=== PATIENT | male | born 1990 | race Caucasian/White ===

== ENCOUNTER 2024-09-17 16:08 | Emergency (ER) | payer MEDICARE, MEDICAID, SELFPAY ==
[2024-09-17 16:09] VITALS: BP 130/91; PULSE 72; RESP 18; TEMP 36.7; O2SAT 98
--- NOTE | 2024-09-17 16:28 | EDS_ITS ---
HPI HPI - Psych History of Present Illness Chief Complaint: Mental Health Narrative Narrative: History and physical limited secondary to psychiatric disorder. Patient presents at the recommendation of crisis, with 72-hour hold. It was reported that he lives in a skilled nursing and was having aggressive behavior towards others. He also threatened to burn the group help down. Patient is only intermittently cooperative. PFSH PFSH Medical History unable to obtain Home Medications ?Medication ?Instructions ?Recorded ?Last Taken ?Type Unobtainable 09/17/24 Unknown History Allergy/AdvReac Type Severity Reaction Status Date / Time promethazine (From Phenergan) Allergy PT UNSURE Verified 09/17/24 16:17 OF REACTION Family History unable to obtain Surgical History unable to obtain Social History Smoking Status: Never smoker ROS ROS ED Review of Systems ROS Unobtainable: due to mental condition and other Details: Psychiatric EXAM Physical Exam Const Vital Signs: 09/17/24 16:09 09/17/24 18:03 Temperature 98.1 F Temperature Source Oral Pulse Rate 72 88 Respiratory Rate 18 18 Blood Pressure 130/91 H Blood Pressure Mean 104 Pulse Ox 98 Oxygen Delivery Method Room Air MDM MDM MDM Narrative Medical decision making narrative: Concern is for homicidal behavior versus psychosis versus depression versus psychiatric illness with inability to care for self. Medical screening labs will be obtained. Afterwards, contact to crisis will be made for recommended placement as they had sent him in here for medical clearance. I reviewed his medical screening labs and are grossly unremarkable with a normal white count 9.5, hemoglobin 14.6, CMP grossly unremarkable, urine for drugs of abuse is negative. Ethyl alcohol is less than 10.1. At this point in time, I feel he is medically cleared for evaluation by mental health counselor. As they were the ones who sent him in, I do feel that he will require placement. At this point in time, he is awaiting placement in a psychiatric facility. Patient will be signed out to the overnight physician, Dr. Mina Camacho, to continue observation on this patient. At 1 time, patient did become overtly aggressive, and needed to be administered Geodon 20 mg intramuscularly for safety of the patient, and staff as he was not redirectable. Currently, he is in stable condition. History & Record Review Discussion w/independent historian: Patient and Other (Police) Lab Data Attestation: I reviewed the patient's lab results. Labs: Laboratory Results - last 24 hr 09/17/24 09/17/24 09/17/24 16:36 16:46 18:00 WBC 9.5 RBC 4.53 L Hgb 14.6 Hct 42.2 MCV 93.2 MCH 32.2 H MCHC 34.6 RDW Std Deviation 44.0 H RDW Coeff of Wandy 12.9 Plt Count 209 MPV 9.6 Immature Gran % (Auto) 0.200 Neut % (Auto) 66.8 Lymph % (Auto) 26.2 [place] % (Auto) 5.6 Eos % (Auto) 0.5 Baso % (Auto) 0.7 Absolute Neuts (auto) 6.4 Absolute Lymphs (auto) 2.50 Nucleated RBC % 0 Sodium 139 Potassium 3.5 Chloride 106 Carbon Dioxide 21.6 Anion Gap 11 BUN 10 Creatinine 0.87 Est GFR (MDRD) Non-Af 115 BUN/Creatinine Ratio 11.7 Glucose 116 H Calcium 9.0 Total Bilirubin 0.66 AST 16 ALT 9 Alkaline Phosphatase 78 Total Protein 6.9 Albumin 4.1 Globulin 2.8 Albumin/Globulin Ratio 1.5 Urine Opiates Screen NEGATIVE U Buprenorphine Qual NEGATIVE Ur Oxycodone Screen NEGATIVE Urine Methadone Screen NEGATIVE Urine Fentanyl Screen NEGATIVE Ur Barbiturates Screen NEGATIVE Ur Phencyclidine Scrn NEGATIVE Ur Amphetamines Screen NEGATIVE U Benzodiazepines Scrn NEGATIVE Urine Cocaine Screen NEGATIVE U Cannabinoids Screen NEGATIVE Ethyl Alcohol < 10.1 Discharge Plan Triage Chief Complaint: Mental Health ED Provider: Remberto Toribio Dx/Rx/DC Orders Clinical Impression: Homicidal ideation, Aggressive behavior Prescriptions: No Action Unobtainable Primary Care Provider: Care Physician,No Primary Referrals: Care Physician,No Primary [Primary Care Provider] - Print Language: Faroese Disposition Disposition: Psychiatric Hospital or Unit
[2024-09-17 17:15] LABS: Alcohol, Blood (Medical)-Serum < 10.1 mg/dL (<=10.0)
[2024-09-17 17:17] LABS: Amphetamine Urine NEGATIVE (<1000 ng/mL); Barbiturate Urine NEGATIVE (< 200 ng/mL); Benzodiazepine Urine NEGATIVE (< 200 ng/mL); Buprenorphine Urine NEGATIVE (< 200 ng/mL); Cocaine Urine NEGATIVE (< 300 ng/mL); Fentanyl, Urine NEGATIVE; Methadone Urine NEGATIVE (< 300 ng/mL); Opiates Urine NEGATIVE (< 300 ng/mL); Oxycodone, Urine NEGATIVE (< 100 ng/mL); PCP Urine NEGATIVE (< 25 ng/mL); THC Urine NEGATIVE (< 50 ng/mL)
--- NOTE | 2024-09-17 17:49 | ED.RN ---
PT REFUSING BLOOD WORK FROM THIS RN. YOU'RE NOT FUCKING DOING THAT TO ME IT'S ALREADY BEEN DONE 3 TIMES RN EXPLAINED IMPORTANCE OF BLOOD WORK AND HOW IT IS NECESSARY FOR PT TO CONTINUE TREATMENT. PT STILL ANGRY AND REFUSING BLOOD WORK. NOTIFIED.
[2024-09-17] MEDS: Ziprasidone IM 20 MG/ML VIAL IM (18:01)
[2024-09-17 18:03] VITALS: PULSE 88; RESP 18
[2024-09-17 18:12] LABS: Absolute Neutrophil Count 6.4 X10^3/uL (2.0-7.7); Basophil# 0.07 X10^3/uL; Basophil% 0.7 % (0-1); Eosinophil# 0.05 X10^3/uL; Eosinophils% 0.5 % (0-5); Hematocrit 42.2 % (40-54); Hemoglobin 14.6 g/dL (13.0-16.5); Lymphocyte % 26.2 % (19-41); Mean Corp Hgb Conc 34.6 g/dL (32-36); Mean Corpuscular Hgb 32.2 pg (27.0-32.0); Mean Corpuscular Volume 93.2 fL (80-94); Mean Platelet Vol. 9.6 fl (6.2-12.0); Monocyte# 0.53 X10^3/uL; Monocyte% 5.6 % (0-10); NRBC Flagged by Analyzer 0 % (0-5); Neutrophil # 6.36 X10^3/uL (2.7-7.7); Neutrophil % 66.8 % (47-70); Platelet Count 209 K/mm3 (150-450); RBC Distribution Width CV 12.9 % (11.6-14.6); Red Blood Count 4.53 M/mm3 (4.6-6.2); White Blood Count 9.5 K/mm3 (4.4-11.0)
[2024-09-17 18:39] LABS: ALB/GLOB Ratio 1.5 RATIO (0.9-2.4); AST(SGOT) 16 U/L (<=37); Alanine Aminotransfer ALT/SGPT 9 U/L (<=46); Albumin, Serum 4.1 g/dL (3.5-5.0); Alkaline Phosphatase 78 U/L (40-129); Anion Gap 11 (5-15); BUN 10 mg/dL (4-19); BUN/Creat Ratio 11.7 RATIO (10-20); Carbon Dioxide 21.6 mmol/L (21.0-32.0); Chloride 106 mmol/L (98-108); Creatinine, Serum 0.87 mg/dL (0.70-1.20); EST Glomerular Filtration Rate 115 (>60); Globulin 2.8 g/dL (2.2-4.2); Glucose 116 mg/dL (70-99); Potassium 3.5 mmol/L (3.3-5.1); Protein, Total 6.9 g/dL (5.9-8.4); Sodium Level 139 mmol/L (133-145); Total Bilirubin 0.66 mg/dL (0.00-1.30)
--- NOTE | 2024-09-17 18:59 | CM.ED ---
Social Work SW received warm hand off from Logan with [facility]. Logan stated that patient had become aggressive at his fpc, was making threats to harm self and others and threats of burning down the house. Logan stated that patient has been pink slipped and [facility] will be placing patient once medically cleared. SW met with patient, introduced self and role with [facility]. Patient was not engaged in conversation, if he did answer, he used a soft, whisper voice. SW asked if patient knew why he was at the hospital, patient did respond No, why am i here? Patient was rapidly blinking his eyes and appearing to be responding to internal stimuli. Patient would periodically tense his arms and shake. When SW asked if he was upset or cold, patient did state he was cold and asked if he could have another blanket. SW got patient another blanket. No further needs identified at this time. Jeimy Mclean, REHAB CONSULTANT, OFFICE MACHINE MECHANIC
--- NOTE | 2024-09-17 20:22 | CM.ED ---
Social Work SW faxed physician note and all labs to Logan at [facility]. Jeimy Mclean, MEDICAL LABORATORY TECHNICIANS, BEATER ENGINEER HELPER
--- NOTE | 2024-09-17 21:07 | PCA ---
CHART FAXED TO [facility]
--- NOTE | 2024-09-17 22:01 | PCA ---
PT DECLINED AT [facility] DUE TO NO BED DAYS. PT HAS BEEN REFERRED TO [facility], [facility] AND [facility].
--- NOTE | 2024-09-17 22:12 | ED.RN ---
This RN attempted to call [facility]. Voicemail stated offices were closed and to call back between the hours of 9a-5p.
[2024-09-18 02:03] VITALS: BP 110/67; PULSE 76; RESP 12; O2SAT 93
--- NOTE | 2024-09-18 03:45 | PCA ---
CALLED [facility] FOR AN UPDATE. SPOKE WITH ERIN WHO SAID NO NEW UPDATES.
--- NOTE | 2024-09-18 04:37 | PCA ---
DECLINED FROM [facility] DUE TO ACUITY.
[2024-09-18] MEDS: hydrOXYzine PAM 25 MG Capsule 50 MG PO (08:28)
--- NOTE | 2024-09-18 08:52 | ED.RN ---
counseling center called states pt. out of bed days, only option is [facility]. states that [facility] said beds will be available the earliest tomorrow
--- NOTE | 2024-09-18 10:00 | ED.RN ---
THIS NURSE CAME OUT FROM ANOTHER PT'S ROOM AND BABS JAIMES WAS STANDING AT THE NURSES STATION SPEAKING WITH SEC. PHOEBE AND ROBY CABRERA. SECURITY WAS STANDING BY. PT KEEP EXPRESSING HE IS NOT ADMITTED AND NEEDS TO LEAVE. PT IS CURRENTLY PINK SLIPPED ND PENDING PLACEMENT WITH [facility]. PT PROCEEDED TO PUNCH THE COUNTER IN FRONT OF PHOEBE WHEN SECURITY ADVISED PT HE NEEDS TO GO BACK TO HIS ROOM. PT WALKED BACK TO THE ROOM MUMBLING UNDER HIS BREATH. PT WAS ORDERED PO ATIVAN AND GIVEN BY THIS NURSE. PT WILLINGLY TOOK MEDICATION.
[2024-09-18] MEDS: LORazepam 1 MG Tablet PO (10:18)
--- NOTE | 2024-09-18 10:51 | CM.ED ---
Social Work SW contacted Yoko at [facility] and requested guardianship paperwork be faxed. Yoko updated REFUGIO that she has spoken to [facility] and they will not have a bed available until tomorrow at the earliest Jeimy Mclean, RESERVE OFFICER, BRAIDING OPERATOR
--- NOTE | 2024-09-18 12:42 | CM.ED ---
Social Work SW contacted guardian to confirm contact information. All information added to patients chart. Guardian requesting update on patient. Guardian notified that we are still waiting on a bed at [facility], that patient is not expected to leave [facility] until tomorrow. Guardian also asked what it meant to be out of life time psych days and how that affected placement. Process explained to guardian. Guardian thanked SW for update and information. No further needs identified at this time. Jeimy Mclean, DURABLE MEDICAL EQUIPMENT TECHNICIAN, WARP DOFFER
--- NOTE | 2024-09-18 16:49 | EKG12_ITS ---
Test Reason : CP Blood Pressure : */* mmHG Vent. Rate : 79 BPM Atrial Rate : 79 BPM P-R Int : 142 ms QRS Dur : 94 ms QT Int : 376 ms P-R-T Axes : 70 69 66 degrees QTcB Int : 431 ms Normal sinus rhythm with sinus arrhythmia Normal ECG Confirmed by GAEL MENDIOLA, CEE ([id number]), city editor CORINNE PINON ([id number]) on 09/20/2024 9:25:30 AM Referred By: Confirmed By: CEE MAYO MD
--- NOTE | 2024-09-18 16:58 | ED.RN ---
Nadine called, requesting EKG and home med list. Will order and send EKG, attempting to obtain accurate home med list.
--- NOTE | 2024-09-18 17:03 | ED.RN ---
Pt verbalized home meds, unable to verify.
[2024-09-18 19:00] VITALS: BP 101/65; PULSE 67; RESP 16; TEMP 37; O2SAT 98
--- NOTE | 2024-09-18 19:23 | ED.RN ---
THIS SLIME PLANT OPERATOR HELPER TALKED TO REFUGIO AT 1720 ABOUT PT LEAVING FOR [facility]. RE[facility]UGIO SAID PT DOESN'T HAVE A BED, THEY ARE JUST ACCEPTED BECAUSE NO LIFE DAYS LEFT. [facility] JUST SAID THEY ARE HOPING FOR A BED TOMORROW BUT IT MIGHT BE LATER. PER REFUGIO.
[2024-09-19 03:00] VITALS: BP 96/58; PULSE 64; RESP 16; TEMP 36.8; O2SAT 99
--- NOTE | 2024-09-19 08:18 | PCA ---
[facility] CALLED AT 0816 [facility] HAS A BED. C2. CANT ARRIVE BEFORE 11. I AM SETTING UP TRANSPORT FOR 1030.
--- NOTE | 2024-09-19 10:31 | CM.ED ---
Social work Per request from Jeimy FIELD in ED handoff, this SW called patient's legal guardian, Mario Campos (ph: [phone]) and updated on patient's acceptance to [facility] with transfer occurring soon. Mario thanked this SW for the update and had no further needs. Bev Pena, KNOWLEDGE ARCHITECT, BULL RIVETER
[2024-09-19 10:55] VITALS: BP 118/81; PULSE 64; RESP 16; TEMP 36.7; O2SAT 100
== END 2024-09-19 10:57 ==
PROVIDERS: Emergency Provider Emergency Medicine; Visit Provider Emergency Medicine
DX: R45.850 Homicidal ideations (principal); Z79.899 Other long term (current) drug therapy
CPT/HCPCS: 36415; 80053; 80307; 82077; 85025; 93005; 96372; 99285; J3486